=== PATIENT | female | born 1950 | race Caucasian/White ===

== ENCOUNTER 2019-02-25 05:53 | Day surgery (SDC) | payer MEDICARE ==
[2019-02-25] MEDS ORDERED: EPHEDRINE SULFATE 50 MG/ML ML IV ONE (05:54)
[2019-02-25] MEDS ORDERED: LIDOCAINE 2% MDV (20MG/ML) 20ML VIAL IV ONE (05:54)
[2019-02-25] MEDS ORDERED: DEXAMETHASONE 4 MG/ML 1ML VIAL IVP ONE (05:54)
[2019-02-25] MEDS ORDERED: FENTANYL PF 100MCG/2ML VIAL IV ONE (05:54)
[2019-02-25] MEDS ORDERED: MIDAZOLAM HCL 2MG/2ML VIAL IV ONE (05:54)
[2019-02-25] MEDS ORDERED: PROPOFOL 10 MG/ML VIAL IV ONE (05:54)
[2019-02-25] MEDS ORDERED: ROPIVACAINE HCL (NAROPIN) /PF 5MG/ML 20ML VIAL IV ONE (05:54)
[2019-02-25] MEDS ORDERED: FAMOTIDINE 20MG TABLET PO ONE (06:00)
[2019-02-25] MEDS ORDERED: SCOPOLAMINE 1 PATCH TDSY TD ONE (06:00)
[2019-02-25] MEDS ORDERED: ACETAMINOPHEN 500 MG TABLET PO ONE (06:00)
[2019-02-25] MEDS ORDERED: CEFAZOLIN 2 Gram 2 GM/50 ML BAG IVPB ONE (06:00)
[2019-02-25] MEDS ORDERED: METOCLOPRAMIDE 10 MG TABLET PO ONE (06:00)
[2019-02-25] MEDS ORDERED: VANCOMYCIN 1GM/200ML PREMIX 1 GM/200 ML PIGGYBACK IVPB ONE (06:00)
[2019-02-25] MEDS ORDERED: CELECOXIB 100 MG CAPSULE PO ONE (06:00)
[2019-02-25] MEDS ORDERED: RINGERS SOLUTION,LACTATED 1,000 ML IV ONE ×2 (06:40→08:34)
[2019-02-25 07:21] LABS: ABO GROUP O; ANTIBODY SCREEN NEGATIVE (NEGATIVE); RH TYPE POSITIVE
[2019-02-25] MEDS ORDERED: METOCLOPRAMIDE 10 MG TABLET PO PRN (08:01)
[2019-02-25] MEDS ORDERED: HYDROCODONE/APAP 7.5/325MG TABLET PO PRN (08:01)
[2019-02-25] MEDS ORDERED: PROMETHAZINE HCL 25 MG TABLET PO PRN (08:01)
[2019-02-25] MEDS ORDERED: BISACODYL 10 MG SUPP RC PRN (08:01)
[2019-02-25] MEDS ORDERED: KETOROLAC 30 MG/ML VIAL IVP PRN (08:01)
[2019-02-25] MEDS ORDERED: ACETAMINOPHEN W/ CODEINE 300MG/60MG TABLET PO PRN (08:01)
[2019-02-25] MEDS ORDERED: ACETAMINOPHEN 325 MG TAB PO PRN (08:01)
[2019-02-25] MEDS ORDERED: NALOXONE 0.4 MG/1 ML VIAL IVP PRN (08:01)
[2019-02-25] MEDS ORDERED: ONDANSETRON 4 MG ODT TABLET SL PRN (08:01)
[2019-02-25] MEDS ORDERED: MAGNESIUM HYDROXIDE 30 ML UDC PO PRN (08:01)
[2019-02-25] MEDS ORDERED: HYDROCODONE/APAP 5/325MG TABLET PO PRN ×2 (08:01)
[2019-02-25] MEDS ORDERED: DIPHENHYDRAMINE HCL 25 MG CAPSULE PO PRN (08:01)
[2019-02-25] MEDS ORDERED: ACETAMINOPHEN W/ CODEINE 300MG/30MG TABLET PO PRN ×2 (08:01)
[2019-02-25] MEDS ORDERED: AL HYDROX/MAG HYDROX 30ML UD PO PRN (08:01)
[2019-02-25] MEDS ORDERED: TRAMADOL HCL 50 MG TABLET PO PRN ×2 (08:01)
[2019-02-25] MEDS ORDERED: HYDROMORPHONE HCL 2 MG/ML VIAL IM PRN ×2 (08:01)
[2019-02-25] MEDS ORDERED: BUPIVACAINE LIPOSOME 266MG/20ML VIAL SQ ONE (08:32)
[2019-02-25] MEDS ORDERED: BUPIVACAINE 0.5% W/EPI MPF 30 ML VIAL IU ONE (08:32)
[2019-02-25] MEDS ORDERED: TRANEXAMIC ACID 1,000 MG/10 ML ML IU ONE (08:32)
[2019-02-25] MEDS ORDERED: VANCOMYCIN HCL 1 GM VIAL IR ONE (08:33)
[2019-02-25] MEDS ORDERED: TRANEXAMIC ACID 1,000 MG/10 ML ML IVPB ONE (08:33)
[2019-02-25] MEDS ORDERED: VANCOMYCIN HCL 1 GM VIAL IU ONE (08:33)
[2019-02-25] MEDS ORDERED: DEXTROSE 5 % AND 0.9 % NACL 1,000 ML IV PRN (10:30)
[2019-02-25] MEDS ORDERED: VANCOMYCIN HCL 500 MG in 0.9 % SODIUM CHLORIDE 100ML 100 ML IVPB SCH (11:00)
--- NOTE | 2019-02-25 13:31 | Operative Note ---
DATE OF SURGERY: 02/25/2019 PREOPERATIVE DIAGNOSIS: END STAGE RIGHT KNEE ARTHROSIS. POSTOPERATIVE DIAGNOSIS: END STAGE RIGHT KNEE ARTHROSIS. OPERATION: RIGHT TOTAL KNEE ARTHROPLASTY. SURGEON: Lorenzo Kang M.D. ANESTHESIA: Spinal. ANESTHESIA PROVIDER: MÓNICA Crum CRNA COMPLICATIONS: None. ESTIMATED BLOOD LOSS: Minimal. TOURNIQUET TIME: Approximately 60 minutes. OPERATIVE FINDINGS: [id number] medial compartment arthrosis. COMPONENTS PLACED: 2 gram of Vancomycin cement, Wahl [employer] Nephew Journey II Oxinium total knee arthroplasty system size 5 femoral component, size 4 tibial baseplate, a 9 mm thick tibial polyp insert, and a 32 mm cemented patellar component. INDICATIONS: This 68-year-old female who has had persistent pain and dysfunction in the knee for several years. Failed nonoperative treatment. She had [id number] arthrosis. She failed arthroscopic surgery as well as injections and is scheduled for knee replacement. I explained all risks and benefits for the diagnosis and procedures including, but not limited to infection, nerve injury, vessel injury, persistent pain, stiffness, numbness and tingling in the knee, periprosthetic fracture, need for resection, arthroplasty, if components become infects or loosen, nerve injury, vessel injury, blood clot, need for anticoagulation to prevent blood clots and risks associated with these medications and need for further procedures. All of her questions were answered. Rehab course was outlined. She agreed to proceed. PROCEDURE: The patient was brought to the Operating Room, placed in the supine position, prepped for surgery. Spinal anesthesia induced. The right lower extremity and knee were prepped and draped in sterile fashion. The right knee was prepped again with ChloraPrep after it was draped. Intraoperative timeout was performed. Next, we exsanguinated the leg with Esmarch. We did not use a tourniquet, we used Aquamantys during the entire case. We carefully cauterized each layer of approach. Next, an anterior incision was marked and we then infiltrated the incision with 0.5% Marcaine with Epi, Exparel, and tranexamic acid mixture. The skin the subcutaneous tissues were dissected down, incised the capsule medially around the medial border of the patella to the tibial tubercle. Incised the vastus medialis in line with its fibers, in a mid vastus approach, everted the patella, partially resected the retropatellar fat pad, elevated the capsule subperiosteally and medially and then flexed the knee. She had [id number] medial compartment arthrosis. Next, we then drilled the intracondylar drill hole, inserted the intramedullary guide rode with 6-degree cutting block in align with the distal femora condyles, pinned it, and +2 mm position. We cut the distal femoral condyles. Next, we placed the sizing jig in the distal femoral condyles and sized to be right on size 5 through the previously placed pin holes, we placed a size 5 5-in-1 cutting jig, we dilated the anterior cut so it could come out flush without notching. We cut that cut, it was a good cut, we then pinned it and cut the remainder of chamfer cuts in the usual fashion. Next, we then placed the size 5 femoral component, centered it, pinned it, removed osteophytes off the periphery, inserted the resection collet, and drilled down and keel punched the keel hole. Next, attention was turned to the tibia. We placed an external alignment jig to see if the spikes entered the tubercular groove two fingerbreadths distally, referenced for a 7 mm cut off the higher medial plateau. We then pinned the cutting jib provisionally and placed 2 anterior posterior pins. Next, we cut the tibia. After we checked alignment of the cutting jig using a drop maria ines, we centered the tibial anatomic axis. Next, we removed osteophytes off the posterior femoral condyles, and checked the flexion/extension gaps and it had symmetric flexion and extension gaps with a 9 mm poly insert allowing for 1-2 mm varus valgus laxity. Next, we took the knee in flexion and sized the tibial baseplate to a size 4. We placed all trial components, set the rotation at the tibial baseplate and extension with alignment rods centered on the hip joint and ankle joint. We marked electrocautery flores on the anterior cortex off the laser flores of the tibial baseplate. Attention was then turned to the patella, then measured the patella, set the cutting jig to allow for 9 mm thick polyp insert, cut the patella, remeasured it and it was right on 12-13 and then chamfered off the lateral patellar facet and measured it to be 32, medialized as much as possible and drilled three peg holes and placed a trial. The patellar component did have range of motion and mixed cement. The patella tracked nicely in full extension and flexed to 130-140 degrees. Again symmetric flexion/extension gaps. Next we put the knee in flexion, re-exposed the proximal tibia, set the tibial baseplate off the previously placed electrocautery flores, pinned it in place, and then drilled out and keel punched the keel hole. Next, changed gloves, irrigated, brought in a clean sheet, copiously irrigated bone surfaces with with pulse lavage and antibiotic solution. We placed a bone plug in the femoral canal hole and then injected the posterior capsule after cauterizing with Aquamantys with 0.5% Marcaine with Epi, tranexamic acid and Exparel mixture. Next we packed down the tibial component first, removed any excess cement, then packed down the femoral component, removed any excess cement, placed trial tibial poly liner held the knee in extension, clamped down the patellar component until cement hardened. Once the cement hardened we took the knee in flexion, distracted the knee with bone hook and sponge. Removed the trial patellar component and removed any excess cement off the edges of the components. Irrigated it again and then tacked down the real tibial poly insert and verify it was interlocked mediolaterally. Final range of motion is still the same. It was then irrigated copiously and closed the knee in flexion using #2 Stratafix suture and then closed the skin deep with several interrupted and buried 2-0 Vicryl. Sterile dressing was applied, carloz wrap. The patient tolerated the procedure well. No intraoperative complications. Sponge, needle, and blade counts correct. Sent to the Recovery Room stable, neurovascularly intact. She will be discharged as an outpatient and follow-up in two weeks. JOB NUMBER: [id number] MTDD
--- NOTE | 2019-02-25 13:54 | Rehab Evaluation ---
Patient Information - Patient Information Diagnosis: Right Knee Osteoarthritis Ordered Treatment: PT Evaluate and Treat Status: Initial Evaluation Surgery: Yes (R TKA) Date of Surgery: 02/25/19 Past Medical/Surgical Hx: PAST MEDICAL/SURGICAL HISTORY Past Surgical History bilat CATARACT SX; LEFT WRIST DEQUERVAINS RELEASE; rt KNEE ARTHROSCOPY; SHOULDER arthroscopy rt;bilat ctr; ORIF RT FOOT ; REMOVAL RT FOOT HARDWARE; TUBAL LIGATION; RT TOE SX; COLONOSCOPY. PMH - Respiratory Hx Respiratory Disorders Yes Hx Asthma Yes: MILD Hx Sleep Apnea Yes Hx of CPAP Yes Hx of URI Yes: SINUS ISSUES AND ALLERGIES Comment: RASPY THROAT FROM SINUS DRAINAGE PMH - Cardiovascular Hx Cardiovascular Disorders Yes Hx Hypertension Yes: MEDS GOOD CONTROL Exercise Tolerance Good Comment: HYPERLIPIDEMIA PMH - Neuro Hx Neurological Disorders Yes Hx Neuropathy Yes: TOES(DIABETIC) PMH - GI Hx Gastrointestinal Disorders Yes Hx Gastroesophageal Reflux Yes: INFREQ PMH - Hx Genitourinary Disorders Yes Hx Bladder Problem Yes: ON DITROPAN PMH - Endocrine Hx Endocrine Disorders Yes Hx Diabetes Yes: DX 20 YRS AGO Hx of NIDDM Yes Comment: LAST a1c 6.6 PMH - Musculoskeletal Hx Musculoskeletal Disorders Yes Hx Arthritis Yes: KNEES,FEET,HANDS Hx Gout Yes PMH - Psych Hx Psychiatric Problems Yes Hx Depression Yes PMH - Hematology/Oncology Hx Hematology/Oncology No Disorders Social History: Detail (Patient lives in a 1-story house with her . There are 4 steps to enter with a hand railing on the L when going in. In the bathroom there is a tub/shower combination with no grab bars or hand held shower head. The patient reported that she could get a shower bench from her father in law. There is a standard height toilet with no grab bars, but patient stated that the sink is nearby for her to grab onto for assistance to get up. She has a front- wheeled walker available, and stated she could get a cane from her family to use when she needs it. Patient is scheduled for home therapy following discharge.) Precautions: [place], Fall, Other (WBAT on R LE) - Time With Patient Total Time Spent With Patient (Min): 30 Treatment Procedures: Detail (Initial evaluation; low complexity The patient was left in bed with her call light and bedside table within reach. Her was in the room with her and the nursing staff was notified of her status.) Subjective Information - Subjective Information Per Patient (Patient reported that her R knee felt stiff. She said she just had pain medication so she wasn't feeling a lot of pain.) Objective Data - Pain Pain Present: Yes (1/10 in R knee) Pain Scale Used: Numeric (1 - 10) (1/10) - Mental Status Patient Orientation: Oriented x3 - Visual Perception Appears within normal limits for therapeutic activities - ROM Other (R knee ROM is limited as expected s/p R TKA procedure. R hip and ankle, and L LE AROM is within normal limits for functional activities.) - Strength/Tone Other (R knee strength is limited as expected s/p R TKA procedure. R hip and ankle, and L LE strength is within normal limits for functional activities.) - Coordination Appears within normal limits for therapeutic activities - Bed Mobility Independent (Patient was independent in moving up in bed and moving to the side in bed.) - Transfers Independent (Patient was independent in sit to supine, supine to sit, sit to stand, and stand to sit.) - Balance Balance Sitting: Good Balance Standing: Good (Patient demonstrated some unsteadiness with gait after completing stair training, and when turning to go back to bed. She was able to correct herself when she lost balance, and was steady during ambulation with use of the front-wheeled walker.) - Sensation Intact - Gait Detail (The patient ambulated 130 feet in the hallway with supervision using a front wheeled walker, and WBAT on the R LE. She completed stair training with s upervision over 3 steps with use of a handrail and the folded walker for support. Patient demonstrated proper technique with stair training.) Therapy Assessment - Therapy Assessment Detail (The patient presents with decreased R knee ROM, decreased R knee strength, and gait abnormalities that make her a good candidate for physical therapy. The patient has met all of her inpatient therapy goals at this time, she is scheduled to begine home therapy following discharge.) Patient Education - Patient Education Teaching Topic: Exercise/Activity (The patient was instructed in her HEP. The patient demonstrated good technique of all exercises, and understood prescription of exercises to do following discharge.) Problem List - Problem List Physical Therapy Problem List: Detail (1. Decreased R knee ROM 2. Decreased R knee strength 3. R knee pain 4. Gait abnormalities) Goals - Goals Physical Therapy Goals: The patient has met all inpatient therapy goals at this time. Prognosis - Prognosis Good Plan - Plan Physical Therapy Plan: Patient is being discharged from inpatient therapy at this time. She is scheduled to begin home therapy following discharge.
--- NOTE | 2019-02-25 14:05 | Rehab Evaluation ---
Patient Information - Patient Information Diagnosis: Right Knee Osteoarthritis Ordered Treatment: OT Evaluate and Treat Status: Initial Evaluation Surgery: Yes (R TKA) Date of Surgery: 02/25/19 Past Medical/Surgical Hx: PAST MEDICAL/SURGICAL HISTORY Past Surgical History bilat CATARACT SX; LEFT WRIST DEQUERVAINS RELEASE; rt KNEE ARTHROSCOPY; SHOULDER arthroscopy rt;bilat ctr; ORIF RT FOOT ; REMOVAL RT FOOT HARDWARE; TUBAL LIGATION; RT TOE SX; COLONOSCOPY. PMH - Respiratory Hx Respiratory Disorders Yes Hx Asthma Yes: MILD Hx Sleep Apnea Yes Hx of CPAP Yes Hx of URI Yes: SINUS ISSUES AND ALLERGIES Comment: RASPY THROAT FROM SINUS DRAINAGE PMH - Cardiovascular Hx Cardiovascular Disorders Yes Hx Hypertension Yes: MEDS GOOD CONTROL Exercise Tolerance Good Comment: HYPERLIPIDEMIA PMH - Neuro Hx Neurological Disorders Yes Hx Neuropathy Yes: TOES(DIABETIC) PMH - GI Hx Gastrointestinal Disorders Yes Hx Gastroesophageal Reflux Yes: INFREQ PMH - Hx Genitourinary Disorders Yes Hx Bladder Problem Yes: ON DITROPAN PMH - Endocrine Hx Endocrine Disorders Yes Hx Diabetes Yes: DX 20 YRS AGO Hx of NIDDM Yes Comment: LAST a1c 6.6 PMH - Musculoskeletal Hx Musculoskeletal Disorders Yes Hx Arthritis Yes: KNEES,FEET,HANDS Hx Gout Yes PMH - Psych Hx Psychiatric Problems Yes Hx Depression Yes PMH - Hematology/Oncology Hx Hematology/Oncology No Disorders Social History: Detail (Patient lives in a 1-story house with her . There are 4 steps to enter with a hand railing on the L when going in. In the bathroom there is a tub/shower combination with no grab bars or hand held shower head. The patient reported that she could get a shower bench from her father in law. There is a standard height toilet with no grab bars, but patient stated that the sink is nearby for her to grab onto for assistance to get up. She has a front- wheeled walker available, and stated she could get a cane from her family to use when she needs it. Patient is scheduled for home therapy following discharge. Her spouse is responsible for all meal prep, laundry and home mgmt tasks.) Precautions: [place], Fall, Other (WBAT on R LE) - Time With Patient Total Time Spent With Patient (Min): 35 Treatment Procedures: Detail (OT eval low complexity) Subjective Information - Subjective Information Per Patient Objective Data - Pain Pain Present: Yes (03/29) - Mental Status Patient Orientation: Oriented x3 - Visual Perception Appears within normal limits for therapeutic activities - ROM Within normal limits (Shyam UE AROM WNL) - Strength/Tone Within normal limits (Shyam UE strength WNL) - Coordination Appears within normal limits for therapeutic activities - Bed Mobility Independent (Ind with supine to sit) - Transfers Independent (Ind with sit to stand from EOB) - Balance Balance Sitting: Good Balance Standing: Fair - Sensation Intact - Gait Detail (Pt ambulating in room with 2 wheeled walker and CG assist.) - ADL's/IADL's Detail (Pt educated and able to demonstrate learning of modified LE dressing techniques including doffing briefs and slipper socks and donning ken sock (with assist), underwear, shorts and slip on shoes. Reviewed shower safety and modifications, pt verbalized understanding.) Therapy Assessment - Therapy Assessment Detail (Pt is Ind with modified LE dressing techniques.) Problem List - Problem List Occupational Therapy Problem List: Detail (No current IP OT problems identified.) Goals - Goals Occupational Therapy Goals: No current IP OT goals identified. Prognosis - Prognosis Good Plan - Plan Occupational Therapy Plan: Pt is discharged from IP OT at this time. Thank you for this referral.
[2019-02-25] MEDS ORDERED: DOCUSATE SODIUM 100 MG CAPSULE PO SCH (22:00)
== END 2019-02-25 15:10 | disposition home health service (06) ==
LOC: SUR 05:53 → MEDSURG 10:21 → SUR 15:10
PROVIDERS: ATTEND Orthopaedic Surgery
DX: M17.11 Unilateral primary osteoarthritis, right knee (principal); E11.9 Type 2 diabetes mellitus without complications; I10 Essential (primary) hypertension; E78.00 Pure hypercholesterolemia, unspecified
CPT/HCPCS: 36416; 76942; 82948; 86850; 86900; 86901; C1776; J1885; J3370; J7042; J7120